=== PATIENT | female | born 1970 ===

== ENCOUNTER 2020-07-01 09:35 | Emergency (ER) | payer SELFPAY ==
[~2020-07-01] VITALS: Ht 160 cm; Wt 72.0 kg
--- NOTE | 2020-07-01 09:38 | NUR ---
PT BIBA FROM [facility]TER[facility] FOR HTN DURING PREGANCY (6 MONTHS GESTATION), NEEDING MED CLEARANCE. PT CHANGED INTO GOWN, MONITORS IN PLACE, AXOX4, NO COMPLAINTS OR S/S. COMFORT MEASURES PROVIDED. CALL LIGHT WITHIN REACH. LAW ENFORCEMENT AT BS.
[2020-07-01 10:30] LABS: BASOPHILS % (AUTO) 1 % (0-1); EOSINOPHILS % (AUTO) 1 % (1-7); LYMPHOCYTES % (AUTO) 19 % (22-44); MEAN CORPUSCULAR HEMOGLOBIN 18.8 pg (27.0-34.8); MEAN CORPUSCULAR HGB CONC 30.9 g/dL (32.4-35.8); MEAN PLATELET VOLUME 8.5 fL (7.4-10.4); MONOCYTES % (AUTO) 6 % (2-9); NEUTROPHILS % (AUTO) 74 % (42-75); PLATELET COUNT 377 x10^3/uL (130-400); RED BLOOD COUNT 4.13 x10^6/uL (3.82-5.3); RED CELL DISTRIBUTION WIDTH 23.4 % (9.6-15.2)
[2020-07-01 10:37] LABS: ALANINE AMINOTRANSFERASE 17 U/L (12-78); ALBUMIN 3.7 g/dL (3.4-5.0); CALCIUM 8.7 mg/dL (8.5-10.1); CREATININE 0.78 mg/dL (0.55-1.02)
[2020-07-01 10:41] LABS: ALKALINE PHOSPHATASE 56 U/L (45-117); BILIRUBIN,TOTAL 0.4 mg/dL (0.2-1.0); TOTAL PROTEIN 7.9 g/dL (6.4-8.2)
[2020-07-01 10:45] LABS: MD MORPH REVIEW ONLY
[2020-07-01 10:46] LABS: <PLATELET ESTIMATE> INCREASED; ANISOCYTOSIS 2+; HYPOCHROMIA 1+; LARGE PLATELETS 1+; MICROCYTOSIS 2+; POLYCHROMASIA 1+; TEAR DROPS 1+
[2020-07-01 10:47] LABS: OVALOCYTES 1+
[2020-07-01 10:51] LABS: MICROSCOPIC NOT IND
[2020-07-01 10:55] LABS: ANION GAP 6 mmol/L (5-15); CHLORIDE 108 mmol/L (98-107)
[2020-07-01] MEDS ORDERED: hydrALAzine 20 MG/ML, 1ML ONE (10:56)
[2020-07-01] MEDS ORDERED: SODIUM CHLORIDE FLUSH 10ML SYR IVF ONE (11:00)
[2020-07-01] MEDS ORDERED: hydrALAzine 20 MG/ML, 1ML IV ONE (11:00)
[2020-07-01] MEDS ORDERED: PLEASE ENTER ALLERGIES MC SCH (11:00)
--- NOTE | 2020-07-01 11:07 | NUR ---
PT CALMLY LAYING ON GURREMINGTON, JOSEF. COMFORT MEASURES PROVIDED. MEDICATED PER EMAR. CALL LIGHT WITHIN REACH. US AT BS.
--- NOTE | 2020-07-01 11:38 | NUR ---
PT TO CT
--- NOTE | 2020-07-01 11:50 | NUR ---
PT BACK FROM CT. CALMLY LAYING ON GURNEY. COMFORT MEASURES PROVIDED. CALL LIGHT WITHIN REACH. WCSD AT BS
[2020-07-01] MEDS ORDERED: OMNIPAQUE 350 MG/ML, 100ML BOTTLE ONE (11:52)
[2020-07-01] MEDS ORDERED: LABETALOL 5MG/ML, 20ML ONE (11:57)
[2020-07-01] MEDS ORDERED: LABETALOL 5MG/ML, 20ML IVPush ONE (12:30)
--- NOTE | 2020-07-01 12:54 | NUR ---
PT CALMLY LAYING ON GURNEY. NAD. NO NEEDS AT THIS TIME, CALL LIGHT WITHIN REACH. WCSD AT BS
[2020-07-01 13:10] VITALS: BP 188/104
--- NOTE | 2020-07-01 13:12 | NUR ---
PT LAYING ON GURNEY WATCHING TV. NAD. AMBULATED TO BR WITH STEADY GAIT. COMFORT MEASURES PROVIDED. CALL LIGHT WITHIN REACH, NO NEEDS AT THIS TIME.
--- NOTE | 2020-07-01 13:52 | NUR ---
BREAK RN: PT WAS DC BY PRIMARY NURSE. AMBULATORY W/ A STEADY GAIT, ESCORTED BY PD TO LOBBY.
== END 2020-07-01 13:54 | disposition home or self-care (01) ==
LOC: ED 13:45
DX: O16.1 Unspecified maternal hypertension, first trimester (principal); R19.00 Intra-abdominal and pelvic swelling, mass and lump, unspecified site; F17.210 Nicotine dependence, cigarettes, uncomplicated; Z3A.01 Less than 8 weeks gestation of pregnancy
CPT/HCPCS: 36415; 71045; 74177; 76815; 80053; 81003; 84702; 85025; 93005; 96374; 96375; 99285; J0360; Q9967